=== PATIENT | female | born 1955 | race Two or more races ===

== ENCOUNTER 2018-02-25 07:42 | Outpatient (CLI) | payer OTHER | END 2018-02-25 07:49 | disposition home or self-care (01) | LOC: LAB 07:42 | DX: K57.20 Diverticulitis of large intestine with perforation and abscess without bleeding (principal); Z86.010 Personal history of colon polyps ==

== ENCOUNTER 2018-03-07 06:54 | Day surgery (SDC) | payer OTHER | END 2018-03-07 09:50 | disposition home or self-care (01) | LOC: AMB-ENDOS 06:54 | DX: K57.32 Diverticulitis of large intestine without perforation or abscess without bleeding (principal) ==

== ENCOUNTER 2021-01-04 14:57 | Outpatient (CLI) | payer OTHER | END 2021-01-04 15:56 | disposition home or self-care (01) | LOC: MAMO-SONO 14:57 | PROVIDERS: ATTEND Internal Medicine | DX: N60.02 Solitary cyst of left breast (principal); N64.89 Other specified disorders of breast; Z12.31 Encounter for screening mammogram for malignant neoplasm of breast; R22.2 Localized swelling, mass and lump, trunk ==

== ENCOUNTER 2021-07-26 12:18 | Outpatient (CLI) | payer OTHER | END 2021-07-26 12:32 | disposition home or self-care (01) | LOC: SONOGRAMA 12:18 | PROVIDERS: ATTEND Surgery | DX: N60.11 Diffuse cystic mastopathy of right breast (principal); N60.12 Diffuse cystic mastopathy of left breast ==

== ENCOUNTER 2022-07-17 13:43 | Outpatient (CLI) | payer OTHER | END 2022-07-17 13:52 | disposition home or self-care (01) | LOC: RAD 13:43 | PROVIDERS: ATTEND Internal Medicine | DX: J44.1 Chronic obstructive pulmonary disease with (acute) exacerbation (principal) ==

== ENCOUNTER 2022-07-28 08:26 | Outpatient (CLI) | payer OTHER | END 2022-07-28 08:37 | disposition home or self-care (01) | LOC: RX STUDY 08:26 | PROVIDERS: ATTEND Internal Medicine | DX: K21.9 Gastro-esophageal reflux disease without esophagitis (principal) ==

== ENCOUNTER 2022-08-03 14:10 | Outpatient (CLI) | payer OTHER | END 2022-08-03 14:23 | disposition home or self-care (01) | LOC: TOM 14:10 | PROVIDERS: ATTEND Internal Medicine | DX: M54.17 Radiculopathy, lumbosacral region (principal); J44.1 Chronic obstructive pulmonary disease with (acute) exacerbation ==

== ENCOUNTER → 2024-04-25 07:34 | Outpatient (CLI) | payer OTHER | END | disposition home or self-care (01) | LOC: NUCLEAR 03-25 07:00 | PROVIDERS: ATTEND Internal Medicine | DX: I20.9 Angina pectoris, unspecified (principal) | CPT/HCPCS: 78452; 93017; A9500 ==

== ENCOUNTER 2024-11-20 10:10 | Outpatient (CLI) | payer OTHER | END 2024-11-20 10:17 | disposition home or self-care (01) | LOC: MAMO-SONO 10:10 | PROVIDERS: ATTEND Internal Medicine | DX: N64.4 Mastodynia (principal); R92.8 Other abnormal and inconclusive findings on diagnostic imaging of breast ==